=== PATIENT | male | born 1965 | race Caucasian/White ===

== ENCOUNTER 2024-08-25 05:30 | Day surgery (SDC) | payer OTHER ==
[2024-08-20 09:53] VITALS: BP 128/89
[2024-08-20 09:58] LABS: PH,URINE 6.5 (5.0-8.0); URINE APPEARANCE Clear; URINE BILIRRUBIN Negative (NEGATIVE); URINE BLOOD Negative; URINE COLOR Yellow; URINE GLUCOSE Negative (NEGATIVE); URINE LEUKOCYTE Negative; URINE NITRATE Negative; URINE PROTEIN Negative (NEGATIVE)
[2024-08-20 10:03] LABS: URINE BACTERIA 9.7 uL (0.0-1933)
[2024-08-20 10:09] LABS: URINE EPITHELIAL CELLS 0.4 uL (0.0-38.8); URINE KETONE 40 (NEGATIVE); URINE RBC 0.7 uL (0.0-20.8); URINE WBC 1.4 uL (0.0-23.2)
[2024-08-20 10:23] LABS: HEMATOCRIT 46.9 % (39.0-48.0); HEMOGLOBIN 16.3 g/dL (13-16.00); MEAN CORPUSCULAR HEMOGLOBIN 33.3 pg (27.00-32.0); MEAN CORPUSCULAR HGB CONC 34.7 g/dl (32.0-36.0); PLATELET COUNT 267 K/uL (150-450); RED BLOOD COUNT 4.89 M/uL (4.00-6.00); RED CELL DISTRIBUTION WIDTH 13.4 % (11.5-14.5)
[2024-08-20 10:25] LABS: INR 0.98; PARTIAL THROMBOPLASTIN TIME 29.9 SECONDS (22.0-34.0); PROTHROMBIN TIME 10.7 SECONDS (9.0-11.5)
[2024-08-20 10:47] LABS: CALCIUM 9.7 mg/dL (8.5-10.1); CREATININE SERUM 0.88 mg/dL (0.70-1.30); GFR 89.26; POTASSIUM 4.5 mEq/L (3.5-5.1)
[~2024-08-25] VITALS: Ht 175.3 cm; Wt 81.2 kg
[~2024-08-25 05:30] MED LIST: CLONAZEPAM0.5 MG; LEXAPRO20 MG; OSEL75CA PO; PROTONIX20 MG PO; SONATA5 MG
[2024-08-25] MEDS ORDERED: METRONIDAZOLE/SODIUM CHLORIDE 500 MG/100 ML PIGGYBACK IV ONE ×2 (07:07→08:15)
[2024-08-25] MEDS ORDERED: CEFTRIAXONE SODIUM 2,000 MG VIAL ONE (07:07)
[2024-08-25] MEDS ORDERED: BUPIVACAINE HCL/MPF 0.5% 30ML VIAL ONE (07:07)
[2024-08-25] MEDS ORDERED: ENOXAPARIN SODIUM 40 MG/0.4 ML SYRINGE SUBCUTANEO ONE ×2 (07:08→08:15)
[2024-08-25] MEDS ORDERED: BUPIVACAINE LIPOSOME/PF 266 MG/20 ML VIAL IJ ONE ×2 (07:34→08:15)
[2024-08-25] MEDS ORDERED: CEFTRIAXONE SODIUM 2,000 MG VIAL IV ONE (08:15)
[2024-08-25] MEDS ORDERED: MORPHINE SULFATE 4 MG/ML VIAL IV ONE (09:55)
[2024-08-25] MEDS ORDERED: PERCOCET 5-3251 EACH PO (10:02)
[2024-08-25] MEDS ORDERED: NEURONTIN300 MG PO (10:02)
[2024-08-25] MEDS ORDERED: POLY119PG PO (10:03)
== END 2024-08-25 12:05 | disposition home or self-care (01) ==
LOC: CIR.AMB 05:30
PROVIDERS: ATTEND Surgery
DX: K40.90 Unilateral inguinal hernia, without obstruction or gangrene, not specified as recurrent (principal); Z88.6 Allergy status to analgesic agent
CPT/HCPCS: 49650; C1781

== ENCOUNTER 2025-03-02 06:00 | Day surgery (SDC) | payer OTHER ==
[2025-02-22 13:02] VITALS: BP 132/86
[~2025-03-02] VITALS: Ht 175.3 cm; Wt 79.4 kg
[~2025-03-02 06:00] MED LIST changes: +ABILIFY5 MG PO; +LEXAPRO20 MG PO; +NEURONTIN300 MG PO; +PERCOCET 5-3251 EACH PO; +POLY119PG PO; +ZEPBOUND5 MG/0.51 SQ
[2025-03-02] MEDS ORDERED: CEFTRIAXONE SODIUM 2,000 MG VIAL ONE (06:36)
[2025-03-02] MEDS ORDERED: ENOXAPARIN SODIUM 40 MG/0.4 ML SYRINGE SUBCUTANEO ONE ×2 (06:36→06:48)
[2025-03-02] MEDS ORDERED: METRONIDAZOLE/SODIUM CHLORIDE 500 MG/100 ML PIGGYBACK IV ONE (06:47)
[2025-03-02] MEDS ORDERED: SUGAMMADEX SODIUM 200 MG/2 ML VIAL IV ONE (08:14)
[2025-03-02] MEDS ORDERED: PERCOCET 5-3251 EACH PO (09:04)
[2025-03-02] MEDS ORDERED: NEURONTIN300 MG PO (09:04)
== END 2025-03-02 11:10 | disposition home or self-care (01) ==
LOC: CIR.AMB 06:00
PROVIDERS: ATTEND Surgery
DX: K80.10 Calculus of gallbladder with chronic cholecystitis without obstruction (principal)